=== PATIENT | male | born 1960 | race Caucasian/White ===

== ENCOUNTER 2018-12-18 12:41 | Day surgery (SDC) | payer OTHER ==
[2018-12-18] MEDS ORDERED: FENTAnyl 50 MCG/ML VIAL (15:14)
[2018-12-18] MEDS ORDERED: MIDAZOLAM 1 MG/ML 2 ML INJ ×2 (15:14)
== END 2018-12-18 16:09 | disposition home or self-care (01) ==
LOC: GIL 12:41
DX: R19.4 Change in bowel habit (principal); D12.5 Benign neoplasm of sigmoid colon; I10 Essential (primary) hypertension; E11.9 Type 2 diabetes mellitus without complications
CPT/HCPCS: 43239; 82962; 88305; 88312